=== PATIENT | female | born 2000 | race Caucasian/White ===

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

== ENCOUNTER → 2022-06-30 | Outpatient (REF) | payer OTHER ==
[~2022-06-30] MED LIST changes: +PROM25TA12 PO
[2022-06-30 17:34] LABS: BASO % 0.4 % (0.0-1.0); EOS # 0.2 10^3/uL (0.0-0.5); EOS % 2.5 % (0.0-3.0); HEMATOCRIT 40.9 % (36.0-47.0); HEMOGLOBIN 13.7 g/dl (12.0-15.5); LYMPH # 2.9 10^3/uL (1.5-5.0); MEAN CORPUSCULAR HEMOGLOBIN 29.7 pg (27.0-33.0); MEAN CORPUSCULAR HGB CONC 33.5 g/dl (32.0-36.5); MEAN CORPUSCULAR VOLUME 88.7 fl (80.0-96.0); MONO # 0.6 10^3/uL (0.0-0.8); MONO % 6.8 % (2.0-8.0); NEUTROPHILS # 5.2 10^3/uL (1.5-8.5); NEUTROPHILS % 57.7 % (36.0-66.0); PLATELET COUNT, AUTOMATED 247 10^3/uL (150-450); RED BLOOD COUNT 4.61 10^6/uL (4.00-5.40); WHITE BLOOD COUNT 9.1 10^3/uL (4.0-10.0)
[2022-06-30 17:47] LABS: COMPLEMENT C3 167.7 MG/DL (82.0-160.0); COMPLEMENT C4 23.3 MG/DL (12-36); RHEUMATOID FACTOR QUANT 4.2 IU/ML (<14)
[2022-06-30 17:51] LABS: ERYTHROCYTE SEDIMENTATION RATE 16 mm/hr (0-20)
[2022-06-30 17:52] LABS: ALBUMIN 3.9 G/DL (3.2-5.2); ALKALINE PHOSPHATASE 46 U/L (46-116); ALT/SGPT 22 U/L (7.0-40); AST/SGOT 17 U/L (<34); BILIRUBIN,TOTAL 0.3 MG/DL (0.3-1.2); BLOOD UREA NITROGEN 13 MG/DL (9-23); CALCIUM LEVEL 9.5 MG/DL (8.5-10.1); CARBON DIOXIDE LEVEL 26 MMOL/L (20-31); CHLORIDE LEVEL 105 MMOL/L (98-107); CREATININE FOR GFR 0.56 MG/DL (0.55-1.30); GLUCOSE, FASTING 80 MG/DL (60-100); POTASSIUM SERUM 4.2 MMOL/L (3.5-5.1); SODIUM LEVEL 138 MMOL/L (136-145); THYROID STIMULATING HORMONE 2.337 uIU/ML (0.48-4.17); TOTAL 25(OH) VITAMIN D 21.5 NG/ML (20.0-100.0); TOTAL PROTEIN 6.7 G/DL (5.7-8.2)
== END ==
LOC: M SFHCADAM 15:09
PROVIDERS: ATTEND Physician Assistant Medical
DX: M25.20 Flail joint, unspecified joint (principal); R53.82 Chronic fatigue, unspecified; R23.3 Spontaneous ecchymoses

== ENCOUNTER → 2023-11-17 | Outpatient (REF) | payer BC ==
[~2023-11-17] MED LIST changes: +BUPR-597; -BUPR300T92; +ONDA-282 PO; -ONDA4TAB6 PO
[2023-11-17 19:14] LABS: URIC ACID 5.9 MG/DL (3.1-7.8)
[2023-11-17 19:17] LABS: IMMUNOGLOBULIN A 114.7 MG/DL (40-350); RHEUMATOID FACTOR QUANT < 3.5 IU/ML (<14)
[2023-11-22 14:31] LABS: ANA SCREEN, IFA NEGATIVE (NEGATIVE)
[2023-11-22 23:47] LABS: CYCLIC CITRULLINATED PEPTIDE < 16 UNITS (<20)
[2023-11-23 03:07] LABS: TISSUE TRANSGLUTAMINASE IgA < 1.0 U/mL (<15.0)
[2023-11-23 16:58] LABS: LYME TOTAL ANTIBODY CIA <= 0.90 Index (<=0.90)
== END ==
LOC: M LAB REF 16:26
PROVIDERS: ATTEND Internal Medicine
DX: M13.80 Other specified arthritis, unspecified site (principal)

== ENCOUNTER → 2023-11-30 | Outpatient (REF) | payer BC | LOC: M LAB REF 10:53 | PROVIDERS: ATTEND Internal Medicine | DX: R19.7 Diarrhea, unspecified (principal) ==

== ENCOUNTER → 2023-11-30 | Outpatient (CLI) | payer BC | LOC: M WUC 12:44 | PROVIDERS: ATTEND Internal Medicine | DX: G89.29 Other chronic pain (principal); S93.331A Other subluxation of right foot, initial encounter; S93.332A Other subluxation of left foot, initial encounter; X58.XXXA Exposure to other specified factors, initial encounter; Y92.9 Unspecified place or not applicable; Y93.9 Activity, unspecified; Y99.9 Unspecified external cause status ==

== ENCOUNTER → 2023-12-27 | Outpatient (REF) | payer BC | LOC: M LAB REF 11:34 | PROVIDERS: ATTEND Internal Medicine | DX: R29.818 Other symptoms and signs involving the nervous system (principal) ==

== ENCOUNTER → 2024-04-13 | Outpatient (CLI) | payer BC | LOC: M RAD 07:08 | PROVIDERS: ATTEND Internal Medicine Gastroenterology | DX: R10.9 Unspecified abdominal pain (principal); R11.2 Nausea with vomiting, unspecified | CPT/HCPCS: 78264; A9541 ==

== ENCOUNTER → 2025-03-07 | Outpatient (REF) | payer BC ==
[~2025-03-07] MED LIST changes: -BUPR-597; +BUPR-766
[2025-03-07 18:35] LABS: IRON (FE) 62.0 UG/DL (50-170); PERCENT SATURATION 21.6 % (13.2-45.0)
== END ==
LOC: M LAB REF 18:12
PROVIDERS: ATTEND Internal Medicine
DX: R53.83 Other fatigue (principal)